=== PATIENT | female | born 1995 | race Caucasian/White ===

== ENCOUNTER 2021-09-01 12:59 | Emergency (ER) | payer BC ==
[~2021-09-01] VITALS: Ht 170.2 cm; Wt 69.1 kg
[2021-09-01 13:14] VITALS: TEMP 98.5
[2021-09-01 14:45] LABS: COLLECTION METHOD CLEAN CATCH
[2021-09-01 14:59] LABS: MUCOUS Present (NOT PRESENT); PH 6 (5-8); URINE APPEARANCE Hazy (CLEAR/HAZY); URINE BACTERIA None Seen /hpf (NONE SEEN); URINE BILIRUBIN Negative (NEGATIVE); URINE BLOOD Negative (NEGATIVE); URINE COLOR Yellow (YELLOW); URINE GLUCOSE Negative (NEGATIVE); URINE KETONE Trace (NEGATIVE); URINE LEUKOCYTE ESTERASE Negative (NEGATIVE); URINE NITRATE Negative (NEGATIVE); URINE PROTEIN(semi-quant) Negative (NEGATIVE); URINE RBC 0-2 /hpf (0-2); URINE UROBILINOGEN Negative (NEGATIVE)
[2021-09-01] MEDS ORDERED: PERCOCET 325 MG1 TA2 PO (16:13)
[2021-09-01] MEDS ORDERED: MOTRIN 800800 MG/TAB PO (16:13)
[2021-09-01 16:30] VITALS: BP 112/73; PULSE 62
== END 2021-09-01 16:38 | disposition home or self-care (01) ==
LOC: COL.ER 12:59 → EDBD 13:03 → COL.ER 13:03
PROVIDERS: Personal Emergency Response Attendant
DX: S39.011A Strain of muscle, fascia and tendon of abdomen, initial encounter (principal); M25.551 Pain in right hip; Z28.310 Unvaccinated for COVID-19; X50.0XXA Overexertion from strenuous movement or load, initial encounter; Y93.B9 Activity, other involving muscle strengthening exercises